=== PATIENT | female | born 1980 | race Two or more races ===

== ENCOUNTER 2017-06-07 14:36 | Emergency (ER) | payer MEDICAID, OTHER ==
[~2017-06-07] VITALS: Ht 165.1 cm; Wt 82.0 kg
[2017-06-07 15:17] VITALS: BP 141/91
== END 2017-06-07 19:54 | disposition left against medical advice (07) ==
LOC: ER 14:36
DX: B00.82 Herpes simplex myelitis (principal)
CPT/HCPCS: 99281

== ENCOUNTER 2017-07-09 22:38 | Emergency (ER) | payer OTHER ==
[~2017-07-09] VITALS: Ht 175.3 cm; Wt 82.0 kg
[2017-07-10] MEDS ORDERED: VISCOUS LIDOCAINE 2% 15 ML UDC PO STA (01:16)
[2017-07-10] MEDS ORDERED: ACETAMINOPHEN 325MG TABLET PO STA (01:16)
[2017-07-10] MEDS ORDERED: MAGNESIUM/ALUMINUM HYDROXIDE/SIMETHICONE 30ML UDC PO STA ×2 (01:16)
[2017-07-10] MEDS ORDERED: FAMOTIDINE 20MG TABLET PO ONE (01:30)
[2017-07-10 01:44] LABS: BASOPHILS % 1.5 % (0.0-2.0); EOSINOPHILS % 3.2 % (0.0-5.0); HEMATOCRIT. 35.7 % (36.0-48.0); HEMOGLOBIN. 11.9 g/dL (12.0-16.0); LYMPHOCYTES % 41.2 % (20.0-50.0); MEAN CORPUSCULAR HEMOGLOBIN 30.8 pg (28.0-32.0); MEAN CORPUSCULAR VOLUME 92.4 fL (81.0-99.0); MONOCYTES % 10.6 % (2.0-8.0); NEUTROPHILS % 43.5 % (40.0-76.0); PLATELET 247 x1000/uL (130-400); RED BLOOD CELL COUNT 3.86 mill/uL (4.2-5.4); RED CELL DISTRIBUTION WIDTH 13.9 % (11.6-14.6)
[2017-07-10 01:50] LABS: PROTHROMBIN TIME 10.8 sec (9.4-11.6)
[2017-07-10 01:51] LABS: CHLORIDE 108 mEq/L (98-107)
[2017-07-10 02:58] LABS: CLARITY URINE CLEAR (CLEAR); COLOR URINE YELLOW (YELLOW); KETONES URINE NEGATIVE (NEGATIVE); LEUKOCYTE ESTERASE URINE NEGATIVE (NEGATIVE); NITRITE URINE NEGATIVE (NEGATIVE); OCCULT BLOOD URINE NEGATIVE (NEGATIVE); PROTEIN URINE NEGATIVE (NEGATIVE); SPECIFIC GRAVITY URINE 1.021 (1.005-1.030); UROBILINOGEN URINE 0.2 E.U./dL (0.2-1.0)
[2017-07-10 03:22] LABS: *AMPHETAMINES SCREEN URINE NEGATIVE (NEGATIVE); *BARBITURATES SCREEN URINE NEGATIVE (NEGATIVE); *BENZODIAZEPINES SCREEN URINE NEGATIVE (NEGATIVE); *COCAINE SCREEN URINE NEGATIVE (NEGATIVE); CANNABINOID URINE SCREEN NEGATIVE (NEGATIVE); METHADONE URINE SCREEN NEGATIVE (NEGATIVE); OPIATES URINE SCREEN NEGATIVE (NEGATIVE); PHENCYCLIDINE URINE SCREEN NEGATIVE (NEGATIVE)
[2017-07-10] MEDS ORDERED: KETOROLAC 60MG/2ML VIAL IM ONE (03:30)
[2017-07-10 04:14] VITALS: BP 117/83
== END 2017-07-10 07:00 | disposition home or self-care (01) ==
LOC: ER 22:38
DX: R10.9 Unspecified abdominal pain (principal); R11.0 Nausea; E05.90 Thyrotoxicosis, unspecified without thyrotoxic crisis or storm; Z79.899 Other long term (current) drug therapy
CPT/HCPCS: 36415; 76705; 80053; 80305; 81003; 83690; 85025; 85610; 96372; 99285; J1885